=== PATIENT | male | born 1980 | race Caucasian/White ===

== ENCOUNTER 2020-03-27 05:30 | Day surgery (SDC) | payer BC ==
[2020-03-27] MEDS ORDERED: MAGNESIUM SULFATE INJ 1 GM/2 ML VIAL ONE (07:00)
[2020-03-27] MEDS ORDERED: LIDOCAINE 1% 10 ML VIAL INJ ONE (07:00)
[2020-03-27] MEDS ORDERED: PROPOFOL 200 MG/20 ML VIAL IV ONE (07:00)
[2020-03-27] MEDS ORDERED: METOCLOPRAMIDE HCL INJ 10 MG/2 ML VIAL ONE (07:00)
[2020-03-27] MEDS ORDERED: ceFAZolin SODIUM 1 GM VIAL ONE (07:00)
[2020-03-27] MEDS ORDERED: diphenhydrAMINE HCL 50 MG/ML VIAL ONE (07:00)
[2020-03-27] MEDS ORDERED: KETOROLAC TROMETHAMINE INJ 30 MG/ML VIAL ONE (07:00)
[2020-03-27] MEDS ORDERED: DEXAMETHASONE INJ 10 MG/ML VIAL ONE (07:00)
[2020-03-27] MEDS ORDERED: BUPIVACAINE 0.5% 30 ML VIAL INJ ONE (10:14)
[2020-03-27] MEDS ORDERED: BUPIVACAINE LIPOSOME 13.3 MG/ML VIAL INJ ONE (10:14)
[2020-03-27] MEDS ORDERED: MIDAZOLAM INJ 2 MG/2 ML VIAL ONE (10:40)
[2020-03-27] MEDS ORDERED: KETAMINE HCL 100 MG/ML VIAL ONE (10:40)
[2020-03-27] MEDS ORDERED: fentaNYL CITRATE INJ 50 MCG/ML 2 ML AMP ONE (10:40)
--- NOTE | 2020-03-27 10:55 | RAD ---
EXAM: Chest,2 Views CLINICAL HISTORY: SURGERY TODAY COMPARISON STUDY: None TECHNICAL: PA and lateral chest x-ray. FINDINGS: The lungs are clear. There is no infiltrate/consolidation. There is no sign of interstitial pulmonary edema. There is no pleural effusion. The heart is not enlarged. There is an exaggerated kyphotic curvature of the lower thoracic spine. Minimal anterior wedge deformity of T10, T11 and T12. There are [id number] degenerative disc changes at the lower third of the thoracic spine. IMPRESSION: 1. No acute abnormality. 2. Kyphosis and mild to moderate degenerative disc changes at the lower levels of the thoracic spine. Electronically signed by: Marc Mendez MD 03/27/2020 10:53 AM CDT
[2020-03-27] MEDS: BUPIVACAINE 0.5% 30 ML VIAL INJ ONE (11:24)
[2020-03-27] MEDS: BUPIVACAINE LIPOSOME 13.3 MG/ML VIAL INJ ONE (11:24)
[2020-03-27] MEDS: LACTATED RINGERS 1,000 ML ONE (12:15)
[2020-03-27] MEDS ORDERED: HYDROcodone 5MG/APAP 325MG 1 EA TAB ONE (13:01)
--- NOTE | 2020-03-27 13:01 | OP ---
DATE OF PROCEDURE: 03/27/20 PREOPERATIVE DIAGNOSIS: 1. Right inguinal hernia. POSTOPERATIVE DIAGNOSIS: 1. Right inguinal hernia. PROCEDURE: 1. Repair of right inguinal hernia, possible recurrent. 2. Ilioinguinal nerve block for postoperative pain control. SURGEON: José Miguel Cerda MD. ANESTHESIA: General and local. FINDINGS: There was scarring in the external ring and a moderately large hernia, indirect. COMPLICATIONS: None. ESTIMATED BLOOD LOSS: Minimal. CONDITION: Stable. PLAN: Discharge. INDICATION: As stated. PROCEDURE: General anesthesia was induced. He was prepped and draped in sterile fashion. 0.5% Marcaine with epinephrine was used at the incision site as well as an ilioinguinal nerve block was performed using 3 cc of 0.5% Marcaine with epinephrine based on the ASIS. Incision was made. Subcutaneous tissues were taken down. The external oblique aponeurosis was identified. A small kelsea was made. It was opened along its fibers opening the external ring. The bulbous cord was isolated. The indirect hernia was dissected off the proximal cord and then reduced. This went well. There was no direct component. There was no significant bleeding. The nerve was not definitely identified. There was some scarring consistent with previous surgery. We created the preperitoneal plane with 3 moist Raytecs and gentle finger sweeps with the epigastric vessel anteriorly with [employer]. The large PHS mesh was then placed. It was secured along the tubercle, wrapped around the cord nonstricturing and secured at the shelving edge and laid out nicely underneath. Again, the nerve was not definitely seen or sacrificed. The external oblique was then closed with a running 2-0 Vicryl suture. Everything looked good. More local anesthesia was placed. The wound was closed in two layers and dressing applied. The patient was awakened and taken to Recovery to be discharged. #[id number] MTDD
[2020-03-27] MEDS: HYDROcodone 5MG/APAP 325MG 1 EA TAB PO ONE (13:05)
[2020-03-27 13:12] VITALS: O2SAT 100
[2020-03-27 13:19] VITALS: TEMP 97.5
[2020-03-27 14:23] VITALS: BP 144/91
== END 2020-03-27 14:10 | disposition home or self-care (01) ==
LOC: AMB 05:30
PROVIDERS: ATTEND Surgery
DX: K40.90 Unilateral inguinal hernia, without obstruction or gangrene, not specified as recurrent (principal); I10 Essential (primary) hypertension; F17.200 Nicotine dependence, unspecified, uncomplicated; K21.9 Gastro-esophageal reflux disease without esophagitis; Z79.899 Other long term (current) drug therapy
CPT/HCPCS: 00830; 36415; 49505; 71046; 80048; 85025; 93005; J0690; J1100; J1200; J1885; J2250; J2765; J3010; J3475; J3490; J7120